=== PATIENT | male | born 1955 | race Caucasian/White ===

== ENCOUNTER → 2023-06-04 09:38 | Outpatient (CLI) | payer OTHER, SELFPAY ==
--- NOTE | ~2023-06-04 | CT_ITS ---
EXAMINATION: CT IAC/mastoids BI wo con DATE: 06/04/2023 10:00 INDICATION: Otalgia, left ear. TECHNIQUE: Computed tomography (CT) of the temporal bones was performed without intravenous contrast. Automated exposure control and iterative reconstruction technique were employed. The dose-length pro duct was 181.70 mGy-cm. COMPARISON: None FINDINGS: RIGHT TEMPORAL BONE: The internal auditory canal, cochlea, vestibule, semicircular canals, vestibular aqueduct, carotid ca nal, jugular bulb, facial nerve course, ossicles, Prussak space, scutum, tympanic cavity, mastoid air cells, and external auditory canal are normal. LEFT TEMPORAL BONE: The internal auditory canal, cochlea, vestibule, semicircular canals, vestibular aqueduct, jugular bu lb, carotid canal, facial nerve course, ossicles, Prussak space, scutum, tympanic cavity, mastoid air cells, and external auditory canal are normal. IMPRESSION: 1. Normal temporal bones. Reviewed, dictated and finalized at location B. IMPRESSION: 1. Normal temporal bones.
== END ==
PROVIDERS: PCP Internal Medicine; Visit Provider Otolaryngology
DX: H92.02 Otalgia, left ear (principal)
CPT/HCPCS: 70480

== ENCOUNTER 2024-02-14 09:01 | Outpatient (CLI) | payer OTHER, SELFPAY ==
--- NOTE | 2024-02-15 15:11 | WPDPFTINT ---
PFT Procedure Performed PFT Procedure Performed Plethysmography (Lung Vol) Diffusing Cap (DLCO) Flow Vol Loop Spirometry w/o Bronchodil PFT Interpretation DOS: 02/14/2024 REQUESTING: Sabino Rai MD REASON FOR TESTING: Cough PULMONARY FUNCTION TESTS Results are reliable and reproducible. Repeatability of spirometry FEV1 maneuver is Grade A. Spirometry: The FEV1 is 2.43 L, 82%. The FVC is 3.22 L, 83%. The FEV1/FVC ratio is 75%. Lung volumes: The total lung capacity is 5.66 L, 88%. The residual volume is 2.18 L, 97%. The RV/TLC is 39%. Diffusion: DLCO is 20.6, 81%. The DLCO/VA is 4.23, 101%. Flow volume loop: The flow volume loop is normal. IMPRESSION: Normal spirometry, normal lung volumes and normal diffusion. No bronchodilator was administered. Britney Arreguin MD
== END 2024-02-14 09:02 | disposition home or self-care (01) ==
LOC: ANHPFT 09:02
PROVIDERS: PCP Internal Medicine; Visit Provider Internal Medicine
DX: R05.9 Cough, unspecified (principal)
CPT/HCPCS: 94375; 94726; 94729